=== PATIENT | male | born 1950 | race American Indian/Alaskan Native ===

== ENCOUNTER 2020-04-20 13:35 | Emergency (ER) | payer MEDICARE ==
--- NOTE | 2020-04-20 13:40 | Event Note ---
ED Screening Note Date of service: 04/20/20 Time: 13:39 ED Screening Note: Patient complains of right-sided facial swelling and pain He reports he has had dental pain for a week and a half now with facial pain and swelling Was started on clindamycin by his dentist on April 17, however symptoms are worsening This initial assessment/diagnostic orders/clinical plan/treatment(s) is/are subject to change based on patients health status, clinical progression and re- assessment by fellow clinical providers in the ED. Further treatment and workup at subsequent clinical providers discretion. Patient/guardian urged not to elope from the ED as their condition may be serious if not clinically assessed and managed. Initial orders include: CT face Labs
[2020-04-20 13:41] VITALS: BP 156/105
[2020-04-20 14:30] LABS: Basophils # (Auto) 0.1 K/mm3 (0.0-0.1); Basophils % (Auto) 1.2 % (0.0-1.8); Eosinophils # (Auto) 0.5 K/mm3 (0.0-0.4); Eosinophils % (Auto) 5.7 % (0.0-4.3); Hematocrit 43.8 % (35.5-45.6); Hemoglobin 14.9 gm/dl (11.8-15.2); Lymphocytes # (Auto) 1.9 K/mm3 (1.2-5.4); Lymphocytes % (Auto) 21.8 % (13.4-35.0); Mean Corpuscular HGB Conc 34 % (32-34); Mean Corpuscular Volume 92 fl (84-94); Monocytes # (Auto) 0.9 K/mm3 (0.0-0.8); Monocytes % (Auto) 10.6 % (0.0-7.3); Platelet Count 294 K/mm3 (140-440); Red Blood Count 4.74 M/mm3 (3.65-5.03); Red Cell Distribution Width 12.7 % (13.2-15.2)
[2020-04-20 14:52] LABS: Blood Urea Nitrogen 8 mg/dL (9-20); Calcium 10.1 mg/dL (8.4-10.2); Hemolysis Index 4
[2020-04-20 14:53] LABS: BUN/Creatinine Ratio 11
--- NOTE | 2020-04-20 15:30 | Emergency Department Report ---
ED General Adult HPI - General Chief complaint: Dental/Oral Stated complaint: RT SIDE FACIAL SWELLING Time Seen by Provider: 04/20/20 13:37 Source: patient Mode of arrival: Ambulatory Limitations: No Limitations - History of Present Illness Initial comments: 70-year-old male presents to ED with right facial swelling. Patient states 10 days ago, he woke up with severe swelling to the right side of his face. States he is unsure if he was possibly bitten by an insect. Patient subsequently went to see his dentist, who started him on clindamycin. Patient denies any dental pain. Patient reports swelling has significantly improved, only small area r emains next to his nose. Patient states he followed up with his dentist 2 days ago and she advised that he come to the ER for evaluation of remaining swelling. Patient denies any fever, nausea or vomiting. Patient also reports some rectal pain secondary to hemorrhoids. -: days(s) (10) Location: face Severity scale (0 -10): 4 Consistency: other (Much improved) Improves with: medication (Clindamycin) Associated Symptoms: denies: fever/chills, headaches, nausea/vomiting - Related Data Previous Rx's Medication Instructions Recorded Last Taken Type Hydrocort/Pramoxine [Proctofoam-Hc] 1 applicatio FL TID #10 gm 04/20/20 Unknown Rx Naproxen [Naprosyn] 500 mg PO BID #20 tablet 04/20/20 Unknown Rx Penicillin V Potassium 500 mg PO TID 10 Days #30 tablet 04/20/20 Unknown Rx Allergies Allergy/AdvReac Type Severity Reaction Status Date / Time No Known Allergies Allergy Unverified 04/20/20 13:37 ED Review of Systems ROS: Stated complaint: RT SIDE FACIAL SWELLING Other details as noted in HPI Comment: All other systems reviewed and negative Constitutional: denies: chills, fever ENT: denies: dental pain Gastrointestinal: denies: nausea, vomiting ED Past Medical Hx - Past Medical History Previous Medical History?: No Hx Hypertension: Yes - Surgical History Past Surgical History?: No - Social History Smoking Status: Never Smoker Substance Use Type: Alcohol - Medications Home Medications: Home Medications Medication Instructions Recorded Confirmed Last Taken Type Hydrocort/Pramoxine [Proctofoam-Hc] 1 applicatio FL TID #10 gm 04/20/20 Unknown Rx Naproxen [Naprosyn] 500 mg PO BID #20 tablet 04/20/20 Unknown Rx Penicillin V Potassium 500 mg PO TID 10 Days #30 tablet 04/20/20 Unknown Rx ED Physical Exam - General Limitations: No Limitations General appearance: alert, in no apparent distress - Head Head exam: Present: atraumatic, normocephalic - Eye Eye exam: Present: normal appearance, PERRL, EOMI - ENT ENT exam: Present: mucous membranes moist, other (Patient has approximately 4 cm area of erythema and induration on face just to the right of the nose, and inferior to the right eye; no discharge present; slight tenderness present) - Neck Neck exam: Present: normal inspection - Respiratory Respiratory exam: Present: normal lung sounds bilaterally. Absent: respiratory distress - Cardiovascular Cardiovascular Exam: Present: regular rate, normal rhythm - GI/Abdominal GI/Abdominal exam: Absent: distended - Extremities Exam Extremities exam: Present: normal inspection - Neurological Exam Neurological exam: Present: alert, oriented X3 - Psychiatric Psychiatric exam: Present: normal affect, normal mood - Skin Skin exam: Present: warm, dry, intact, normal color ED Course Vital Signs 04/20/20 13:40 Temperature 98.2 F Pulse Rate 90 Respiratory 20 Rate Blood Pressure 156/105 [Right] O2 Sat by Pulse 97 Oximetry ED Medical Decision Making - Lab Data Result diagrams: 04/20/20 13:50 04/20/20 13:50 - Radiology Data Radiology results: report reviewed, image reviewed - Medical Decision Making Very small 8 mm abscess to the right malar facial area. I will not attempt I&D in this area. Patient currently on clindamycin and reports significant improvement in his facial swelling. We will add Pen-VK antibiotic regimen. Patient advised to follow-up on an outpatient basis. Referrals given. Return precautions given. - Differential Diagnosis Cellulitis, abscess Critical care attestation.: If time is entered above; I have spent that time in minutes in the direct care of this critically ill patient, excluding procedure time. ED Disposition Clinical Impression: Cutaneous abscess of face, Periodontal disease, Hemorrhoids Disposition: - TO HOME OR SELFCARE Is pt being admited?: No Condition: Stable Instructions: Skin Abscess, Hemorrhoids, [id number] Prescriptions: Naproxen [Naprosyn] 500 mg PO BID #20 tablet Penicillin V Potassium 500 mg PO TID 10 Days #30 tablet Hydrocort/Pramoxine [Proctofoam-Hc] 1 applicatio FL TID #10 gm Referrals: AJIT MAGALLANES JR, MD [Primary Care Provider] - 3-5 Days CARLTON CORBETT DDS [Staff Physician] - 3-5 Days AJIT TEE MD [Referring] - 3-5 Days Time of Disposition: 16:52
--- NOTE | 2020-04-20 16:28 | Cat Scan Report ---
CT facial bones w con INDICATION / CLINICAL INFORMATION: 70 years Male; right facial swelling. TECHNIQUE: Thin cut axial images obtained to the facial region following contrast administration. Sagittal and c oronal reconstructions performed. All CT scans at this location are performed using CT dose reduction for ALARA by means of automated exposure control. COMPARISON: None available. FINDINGS: There is an 8mm fluid collection seen in the subcutaneous soft tissues along the lateral margin of th e nose on the right, in the medial malar region. Surrounding wall thickening and enhancement noted. T his finding may be associated with periodontal disease - lucency is seen in the periapical region of the adjacent lateral incisor/canine tooth along the right maxillary alveolar ridge, where the outer c ortex is also disrupted. Surrounding inflammatory change seen, which may represent some component of cellulitis. Mild mucosal thickening seen in the ethmoids. There is partial opacification of the mastoids. No coal escence of air cells seen. Small mucus retention cyst/polyp seen in the left sphenoid sinus. Orbits are grossly normal. No definitive intracranial abnormality appreciated. IMPRESSION: 1. Findings concerning for small hernias abscess in the right facial region as described above. Signer Name: Aleksandar Braxton MD, III Signed: 04/20/2020 4:24 PM Workstation Name: [id number]
== END 2020-04-20 17:10 | disposition home or self-care (01) ==
LOC: ED 13:35
DX: L02.01 Cutaneous abscess of face (principal); K05.6 Periodontal disease, unspecified; K64.9 Unspecified hemorrhoids; I10 Essential (primary) hypertension; Z79.2 Long term (current) use of antibiotics; Z79.899 Other long term (current) drug therapy
CPT/HCPCS: 36415; 70487; 80048; 85025; 99284; Q9967